=== PATIENT | female | born 1945 | race African-American/Black ===

== ENCOUNTER 2017-04-01 06:35 | Day surgery (SDC) | payer OTHER ==
[~2017-04-01] VITALS: Ht 152.4 cm; Wt 64.4 kg
[2017-04-01 07:47] VITALS: BP 143/92
[2017-04-01 12:26] VITALS: BP 120/66
== END 2017-04-01 11:45 | disposition home or self-care (01) ==
LOC: GI 06:35 → OR 10:30 → GI 10:30
PROVIDERS: Internal Medicine
PROC: 0DB68ZX Excision of Stomach, Via Natural or Artificial Opening Endoscopic, Diagnostic (ICD-10-PCS; 2017-04-01)
PROC: 0DB48ZX Excision of Esophagogastric Junction, Via Natural or Artificial Opening Endoscopic, Diagnostic (ICD-10-PCS; principal; 2017-04-01 10:30)
DX: K22.70 Barrett's esophagus without dysplasia (principal); K21.0 Gastro-esophageal reflux disease with esophagitis; K29.40 Chronic atrophic gastritis without bleeding; B96.81 Helicobacter pylori [H. pylori] as the cause of diseases classified elsewhere; E11.9 Type 2 diabetes mellitus without complications; E78.5 Hyperlipidemia, unspecified; I10 Essential (primary) hypertension; Z87.891 Personal history of nicotine dependence; Z68.28 Body mass index [BMI] 28.0-28.9, adult
CPT/HCPCS: 43235; J1200; J1610; J2250; J2310; J3010; J3490